=== PATIENT | male | born 1955 | race Asian ===

== ENCOUNTER 2017-04-05 17:27 | Emergency (ER) | payer OTHER ==
[~2017-04-05] VITALS: Ht 165.1 cm; Wt 77.1 kg
[2017-04-05 17:33] VITALS: BP_SYST 125
--- NOTE | 2017-04-05 17:33 | NUR ---
Patient to ER bed 2 to gown for evaluation. Side rails up. Report given to SHAKA Castorena.
--- NOTE | 2017-04-05 17:35 | NUR ---
ER at bedside examining patient.
[2017-04-05] MEDS ORDERED: NACL 0.9% 1,000 ML IV SCH (17:41)
--- NOTE | 2017-04-05 17:42 | NUR ---
Patient is brought in by daughter and her boyfriend. Patient reports that he was in the hot tub today playing beer pong when he smoked some marijuana, started to cough and had a syncopal episode. Patient's daughter reports he had lost consciousness for 30 secounds. Patient has a skin abrasion to the bridge of his nose and right orbital region. Denies pain. No other complaints/injuries per patient or as noted.
[2017-04-05] MEDS ORDERED: BACITRACIN 1 GM OINT TP ONE (17:45)
[2017-04-05 18:04] LABS: BASOPHILS # (AUTO) 0.2 K/uL (0.0-0.2); BASOPHILS % (AUTO) 1.9 % (0.0-2.0); EOSINOPHILS # (AUTO) 0.1 K/uL (0.0-0.4); EOSINOPHILS % (AUTO) 1.4 % (0.0-4.0); HEMATOCRIT 43.9 % (36-54); HEMOGLOBIN 14.6 g/dL (14.0-18.0); LYMPHOCYTES # (AUTO) 1.5 K/uL (1.0-5.5); LYMPHOCYTES % (AUTO) 14.4 % (20.5-51.5); MEAN CORPUSCULAR HEMOGLOBIN 31 pg (27-31); MEAN CORPUSCULAR HGB CONC 33 % (32-36); MEAN CORPUSCULAR VOLUME 92 fL (79.0-98.0); MONOCYTES # (AUTO) 0.8 K/uL (0.0-1.0); MONOCYTES % (AUTO) 8.2 % (1.7-9.3); NEUTROPHILS # (AUTO) 7.6 K/uL (1.8-7.7); NEUTROPHILS % (AUTO) 74.1 % (40.0-70.0); PLATELET COUNT (AUTO) 259 K/uL (130-430); RED BLOOD CELL COUNT(AUTO) 4.79 MIL/uL (4.2-6.2); RED CELL DISTRIBUTION WIDTH 12.5 % (9.0-15.0); WHITE BLOOD COUNT (AUTO) 10.2 K/uL (4.8-10.8)
[2017-04-05 18:09] LABS: CALCIUM 8.7 mg/dL (8.4-11.0); CREATININE 1.08 mg/dL (0.55-1.30); POTASSIUM 3.8 mmol/L (3.5-5.1)
[2017-04-05 18:14] LABS: TOTAL BILIRUBIN 0.4 mg/dL (0.0-1.0); TOTAL PROTEIN, SERUM 7.4 g/dL (6.4-8.3)
--- NOTE | 2017-04-05 19:14 | NUR ---
Adminstered bacitracin zinc ointment after cleansing patient's abrasion with normal saline. Ointment did not scan.
--- NOTE | 2017-04-05 19:18 | NUR ---
Patient given written and verbal discharge instructions and verbalizes understanding. ER MD Villarreal discussed with patient the results and treatment provided. Patient in stable condition. ID arm band removed. Rx of Mupirocin given. Patient educated on pain management and to follow up with PMD. Pain Scale 0/10. Opportunity for questions provided and answered.
[2017-04-05 19:19] VITALS: BP_SYST 125
== END 2017-04-05 19:19 | disposition home or self-care (01) ==
LOC: SED 17:27
DX: S00.31XA Abrasion of nose, initial encounter (principal); S00.81XA Abrasion of other part of head, initial encounter; R51 Headache; W18.00XA Striking against unspecified object with subsequent fall, initial encounter; Y93.89 Activity, other specified; Y92.89 Other specified places as the place of occurrence of the external cause; Y99.8 Other external cause status
CPT/HCPCS: 36415; 70450; 80053; 85025; 93005; 96360; 99285; J7030